=== PATIENT | female | born 1945 | race Two or more races ===

== ENCOUNTER 2017-08-13 04:08 | Emergency (ER) | payer OTHER ==
[~2017-08-13] VITALS: Ht 152.4 cm; Wt 45.4 kg
[2017-08-13 04:30] VITALS: BP 150/96
[2017-08-13] MEDS ORDERED: Albuterol ud Inhalation HHN ONE (05:00)
--- NOTE | 2017-08-13 05:18 | Emergency Room Report ---
History of Present Illness General Chief Complaint: Flu Like Symptoms Source: Patient, Family Member Present Illness HPI [id number] Complaining of cough for 4-5 days dry, no fevers or chills no other URI like symptoms Non smoker, no history of asthma Allergies: Coded Allergies: No Known Allergies (Unverified , 08/13/17) Patient History Past Medical History: none Past Surgical History: none Pertinent Family History: none Social History: Denies: smoking, alcohol use, drug use Now: No Immunizations: UTD Reviewed Nursing Documentation: PMH: Agreed, PSxH: Agreed Nursing Documentation-PMH Past Medical History: No Stated History Review of Systems All Other Systems: negative except mentioned in HPI Physical Exam Vital Signs Date Time Temp Pulse Resp B/P (MAP) Pulse Ox O2 Delivery O2 Flow Rate FiO2 08/13/17 04:16 98.0 94 18 150/96 99 Room Air 98.1 Sp02 EP Interpretation: reviewed, normal General Appearance: normal inspection, well appearing, no apparent distress, alert, GCS 15, non-toxic Head: normocephalic, atraumatic Eyes: bilateral eye PERRL, bilateral eye EOMI ENT: normal ENT inspection, hearing grossly normal, normal pharynx, no angioedema, normal voice, TMs + canals normal, uvula midline, moist mucus membranes Neck: normal inspection, full range of motion, supple, thyroid normal, no meningismus, no bony tend Respiratory: normal inspection, lungs clear, normal breath sounds, no rhonchi, no respiratory distress, no retraction, no accessory muscle use, no wheezing, speaking full sentences Cardiovascular #1: regular rate, rhythm, no edema, no JVD, normal capillary refill Gastrointestinal: normal inspection, normal bowel sounds, non tender, soft, no mass, no peritonitis, non-distended, no guarding, no hernia, no pulsatile mass Genitourinary: no CVA tenderness Musculoskeletal: normal inspection, back normal, normal range of motion, no calf tenderness, pelvis stable, Mehdi's Sign negative Neurologic: normal inspection, alert, oriented x3, responsive, conduit helper III-XII nml as tested, motor strength/tone normal, cerebellar normal, normal gait, speech normal Psychiatric: normal inspection, judgement/insight normal, mood/affect normal, no suicidal/homicidal ideation, no delusions Skin: normal inspection, normal color, no rash Lymphatic: normal inspection, no adenopathy Medical Decision Making Diagnostic Impression: Primary Impression: Viral illness ER Course VSS, afebrile CXR negative for PNA Cough improved with albuterol Tx Likely bronchitis component Low suspicion for sepsis, flu given well appearance Rx Albuterol ER course: Patient has remained stable during ED stay. Disposition: Patient is to be discharged to home. Prescriptions given are albuterol Patient is instructed to follow up with their primary care doctor within 5 days. Strict return precautions discussed with patient such as fever, chills, worsening/severe pain, nausea, vomiting, which may indicate severe illness. Patient verbalizes understanding and agrees with plan. Please note that this Emergency Department Report was dictated using [employer] non profit technology software, occasionally this can lead to erroneous entry secondary to interpretation by the dictation equipment Chest X-Ray Diagnostic Results Chest X-Ray Diagnostic Results : Chest X-Ray Ordered: Yes Indication: Shortness of Breath EP Interpretation: Yes Interpretation: no consolidation, no effusion, no pneumothorax, no acute cardiopulmonary disease Impression: No acute disease Electronically Signed by: Dr Nelly Leonard Last Vital Signs Date Time Temp Pulse Resp B/P (MAP) Pulse Ox O2 Delivery O2 Flow Rate FiO2 08/13/17 04:16 98.0 94 18 150/96 99 Room Air 98.1 Status: improved Disposition: HOME, SELF-CARE Scripts Albuterol Sulfate* (ALBUTEROL SULFATE MDI*) 8.5 Gm Hfa.aer.ad 2 PUFF INH Q4H Y for cough/wheezing, #1 EA 0 Refills Prov: NELLY LEONARD M.D. 08/13/17 Referrals: NON PHYSICIAN (PCP) NELLY LEONARD M.D. Aug 13, 2017 05:18
[2017-08-13] MEDS ORDERED: ALBUTEROL SULF8.5 GM INH (05:29)
[2017-08-13] MEDS ORDERED: Tylenol #3 tab (300mg/30mg) ORAL ONE (06:00)
[2017-08-13 06:10] VITALS: BP 150/96
--- NOTE | 2017-08-13 11:24 | Diagnostic Imaging Report ---
Indication: Cough Comparison: None A single view chest radiograph was obtained. Findings: Possible infiltrate medial right lung base with obscuring of the right heart border. Heart size is normal. Bones are osteopenic. The aorta is ectatic. IMPRESSION: Suspected infiltrate medial right lung base. This is questionable as this finding is sometimes seen in the setting of a pectus excavatum. A lateral film may be helpful. Please correlate clinically as well.
== END 2017-08-13 06:10 | disposition home or self-care (01) ==
LOC: EMR 04:34
DX: B34.9 Viral infection, unspecified (principal); R06.02 Shortness of breath
CPT/HCPCS: 71045; 94664; 99283

== ENCOUNTER 2018-01-16 09:50 | Outpatient (CLI) | payer OTHER, MEDICARE ==
[~2018-01-16] VITALS: Ht 144.8 cm; Wt 43.1 kg
[~2018-01-16 09:50] MED LIST: ALBUTEROL SULF8.5 GM INH
[2018-01-16 10:17] VITALS: BP 132/65
[2018-01-16] MEDS ORDERED: no medication (10:27)
--- NOTE | 2018-01-16 10:27 | GI Initial Consult Note ---
History of Present Illness General Date patient seen: Jan 16, 2018 Time patient seen: 10:22 Referring physician: CINTHIA Reason for Consultation: EGD/colonoscopy Present Illness HPI 72 year old female referred by Dr. Pereira for EGD/colonoscopy screening. The patient presents today with no general GI symptoms. Denies any abdominal pain, N/V/D or constipation. Denies any unintentional weight loss or changes in dietary habits. No signs of abuse or neglect. Patient is ambulatory and is not fall risk. Home Meds Active Scripts Albuterol Sulfate* (ALBUTEROL SULFATE MDI*) 8.5 Gm Hfa.aer.ad, 2 PUFF INH Q4H PRN for cough/wheezing, #1 EA 0 Refills Prov:NELLY LEONARD M.D. 08/13/17 Med list reviewed/reconciled: Yes Allergies: Coded Allergies: No Known Allergies (Unverified , 08/13/17) Patient History History Provided By: Patient, Medical Record PMH Narrative HTN HLD arthritis back pain Past Surgical History: Foot Social History: Reports: other - caffeine use Review of Systems All Other Systems: negative except mentioned in HPI Physical Exam Vital Signs Date Time Temp Pulse Resp B/P (MAP) Pulse Ox O2 Delivery O2 Flow Rate FiO2 01/16/18 10:17 98.1 74 16 132/65 96 98.1 Sp02 EP Interpretation: reviewed, normal General Appearance: well appearing, no apparent distress, alert Head: normocephalic EENT: PERRL/EOMI, normal ENT inspection Neck: supple Respiratory: normal breath sounds, no respiratory distress Cardiovascular: normal rate Gastrointestinal: normal inspection, non tender, soft, normal bowel sounds, non -distended Rectal: deferred Genitourinary: no CVA tenderness Musculoskeletal: normal inspection, back normal Neurologic: normal inspection, alert, oriented x3, responsive Psychiatric: normal inspection, judgement/insight normal, memory normal Skin: normal inspection, normal color, no rash, warm/dry, palpation normal, well hydrated Lymphatic: normal inspection, no adenopathy GI: Plan Problems: (1) Colonoscopy planned (2) HLD (hyperlipidemia) (3) HTN (hypertension) (4) Arthritis Plan EGD/colonoscopy scheduled 01/22/18. - CLD & (Nulytely/Suprep/Movi-Prep) prep instructions given and acknowledged by patient. - NPO @ SC day prior procedure explained. Seen with Dr. Booker. Thank you for this patient referral. The patient was seen and examined at bedside and all new and available data was reviewed in the patients chart. I agree with the above findings, impression and plan. (Patient seen earlier today. Signature stamp does not reflect patient encounter time.). - MD Ellen [facility] DIRECTOR OF CARDIOLOGY Jan 16, 2018 10:27
== END 2018-01-16 10:23 | disposition home or self-care (01) ==
LOC: PAN 09:50
DX: E78.5 Hyperlipidemia, unspecified (principal); I10 Essential (primary) hypertension; M19.90 Unspecified osteoarthritis, unspecified site
CPT/HCPCS: 99201

== ENCOUNTER 2018-01-29 06:19 | Day surgery (SDC) | payer MEDICARE, OTHER ==
[2018-01-29] VITALS (10 sets, daily range): BP systolic 120–150; BP diastolic 69–80
[~2018-01-29] VITALS: Ht 152.4 cm; Wt 44.0 kg
[~2018-01-29 06:19] MED LIST changes: +no medication
--- NOTE | 2018-01-29 07:07 | Anethesia Preoperative Eval ---
Anesthesia Pre-op PMH/ROS General Date of Evaluation: Jan 29, 2018 Time of Evaluation: 07:04 Anesthesiologist: nkechi ASA Score: ASA 3 Mallampati Score Class I : Soft palate, uvula, fauces, pillars visible Class II: Soft palate, uvula, fauces visible Class III: Soft palate, base of uvula visible Class IV: Only hard plate visible Mallampati Classification: Class II Surgeon: rohit Diagnosis: abdominal pain, colon screening Surgical Procedure: egd/colonoscopy Anesthesia History: none Social History: smoking - nonsmoker Family History: no anesthesia problems Allergies: Coded Allergies: No Known Allergies (Unverified , 08/13/17) Medications: see eMAR Past Medical History Cardiovascular: Reports: HTN, other - hypercholesterolemia Gastrointestinal/Genitourinary: Reports: other - abdominal pain Musculoskeletal/Integumentary: Reports: OA Anesthesia Pre-op Phys. Exam Physician Exam Last Vital Signs Date Time Temp Pulse Resp B/P (MAP) Pulse Ox O2 Delivery O2 Flow Rate FiO2 01/29/18 07:45 97.3 67 20 150/69 (96) 99 97.3 01/29/18 07:11 Room Air Constitutional: NAD Neurologic: CN 2-12 intact Cardiovascular: RRR Respiratory: CTA Gastrointestinal: S/NT/ND Airway Exam Mallampati Score: Class II MO: limited Neck: supple TMD: 2fb ROM: limited Teeth: missing Dentures: upper, lower Anesthesia Pre-op A/P Studies Pre-op Studies: EKG Risk Assessment & Plan Assessment: asa3 Plan: mac Status Change Before Surgery: No Pre-Antibiotics Drug: Teresa Hawthorne MD Jan 29, 2018 07:07
[2018-01-29] MEDS ORDERED: METOPROLOL SUCC50 MG ORAL (07:08)
[2018-01-29] MEDS ORDERED: Midazolam 2mg/2ml Inj IVP PRN (07:15)
[2018-01-29] MEDS ORDERED: Atropine Inj 1mg/10ml Syr IV PRN (07:15)
[2018-01-29] MEDS ORDERED: Labetalol 5mg/ml 20ml vial IV PRN (07:15)
[2018-01-29] MEDS ORDERED: DiphenhydrAMINE 50mg/ml Inj IVP PRN (07:15)
[2018-01-29] MEDS ORDERED: fentaNYL 100 mcg/2 mL IV PRN (07:15)
[2018-01-29] MEDS ORDERED: Atropine Sulfate 0.4mg/ml inj ONE (07:30)
[2018-01-29] MEDS ORDERED: Lidocaine 1% MPF 10mg/ml 5ml ONE (07:30)
[2018-01-29] MEDS ORDERED: Propofol 200mg/20ml IV ONE (07:30)
--- NOTE | 2018-01-29 08:30 | Pre-Procedure Note/Attestation ---
Pre-Procedure Note/Attestation Complete Prior to Procedure Planned Procedure: not applicable Procedure Narrative: esophagogastroduodenoscopy and colonoscopy Indications for Procedure Pre-Operative Diagnosis: screening colonoscopy, GERD Attestation I attest that I discussed the nature of the procedure; its benefits; risks and complications; and alternatives (and the risks and benefits of such alternatives ), prior to the procedure, with the patient (or the patient's legal field representative). I attest that, if there was a reasonable possibility of needing a blood transfusion, the patient (or the patient's legal field representative) was given the [facility] standardized written summary, pursuant to the Liang [place] Blood Safety Act ([place] Health and Safety Code # 1645, as amended). I attest that I re-evaluated the patient just prior to the surgery and that there has been no change in the patient's H&P, except as documented below: Freddie Booker MD Jan 29, 2018 08:30
--- NOTE | 2018-01-29 08:30 | Short Stay Surgery H&P ---
History of Present Illness History of Present Illness Chief Complaint see recent consult note HPI Harmeet Mueller is a 72 year old female who was admitted on for Abdominal Pain, Colon Screening Patient History Allergies: Coded Allergies: No Known Allergies (Unverified , 08/13/17) Medication History Scheduled Metoprolol Succinate* (Metoprolol Succinate*), 50 MG ORAL DAILY, (Reported) Miscellaneous Medications [no medication ], (Reported) Physical Exam Vital Signs Last Vital Signs Date Time Temp Pulse Resp B/P (MAP) Pulse Ox O2 Delivery O2 Flow Rate FiO2 01/29/18 07:45 97.3 67 20 150/69 (96) 99 97.3 01/29/18 07:11 Room Air Plan Attestation Are the patient's medical conditions optimized for surgery? Freddie Booker MD Jan 29, 2018 08:30
--- NOTE | 2018-01-29 09:04 | Endoscopy Procedure Note ---
Endoscopy Procedure Note General Indication for Procedure: screening colon, GERD Procedures Performed: EGD, colonoscopy Operative Findings/Diagnosis: gastritis, colon polyp Specimen: yes Pt Tolerated Procedure Well: Yes Estimated Blood Loss: none Anesthesia Anesthesiologist: christiano Anesthesia: MAC Inserted Devices Implant(s) used?: No Quality Quality of Bowel Preparation: Good Did scope reach the cecum?: Yes Was there any complications?: No GI Core Measures 50 yrs or older w/o bx or poly: No 10yrs. F/U not recommended: Yes If not recommended, why?: Above average risk 10 yrs. F/U needed: Yes 18 years or older w/prev. colo: No Freddie Booker MD Jan 29, 2018 09:04
--- NOTE | 2018-01-29 10:53 | Immediate Post-Op Evaluation ---
Immediate Post-Op Evalulation Immediate Post-Op Evalulation Procedure: egd/colonoscopy/bx Date of Evaluation: Jan 29, 2018 Time of Evaluation: 09:16 IV Fluids: 500ml 0.9ns Blood Products: none Estimated Blood Loss: negligible Blood Pressure Systolic: 120 Blood Pressure Diastolic: 74 Pulse Rate: 86 Respiratory Rate: 18 O2 Sat by Pulse Oximetry: 100 Temperature (Fahrenheit): 97.6 Pain Score (1-10): 0 Nausea: No Vomiting: No Complications none Patient Status: awake, reacts, patent Hydration Status: adequate Drug: Teresa Hawthorne MD Jan 29, 2018 10:53
--- NOTE | 2018-01-29 10:55 | 48 Hour Post Anesthesia Eval ---
Post Anesthesia Evaluation Procedure: egd/colonoscopy/bx Date of Evaluation: Jan 29, 2018 Time of Evaluation: 09:18 Blood Pressure Systolic: 128 0: 75 Pulse Rate: 83 Respiratory Rate: 18 Temperature (Fahrenheit): 97.6 O2 Sat by Pulse Oximetry: 100 Airway: patent Nausea: No Vomiting: No Pain Intensity: 0 Hydration Status: adequate Cardiopulmonary Status: stable Mental Status/LOC: patient returned to baseline Post-Anesthesia Complications: none Follow-up care needed: N/A Teresa Edwards MD Jan 29, 2018 10:54
--- NOTE | 2018-01-29 14:15 | Procedure Note ---
DATE OF PROCEDURE: 01/29/2018 SURGEON: Freddie Booker M.D. REFERRING PHYSICIAN: Freddie Pereira M.D. PROCEDURE: Upper endoscopy with biopsy and colonoscopy with biopsy. ANESTHESIOLOGIST: Dr. Payne. INSTRUMENT: Olympus adult flexible upper endoscope and colonoscope. INDICATION: Screening colonoscopy and chronic GERD. REASON FOR PROCEDURE: The procedure, risks, benefits, and possible consequences, including hemorrhage, aspiration, perforation and infection, and alternative treatments, were explained to the patient/legal guardian by Dr. Freddie Booker and the patient/legal guardian understood and accepted these risks. DESCRIPTION OF PROCEDURE: After informed consent was obtained and the patient was adequately sedated, Olympus upper endoscope was advanced from the mouth into the second portion of the duodenum and retroflexion was performed in the stomach. The patient had evidence of diffuse gastritis. Random biopsy from body and antrum was obtained to rule out H. pylori infection. The patient also has evidence of small inlet patch. At this time, the upper endoscope was retrieved. The patient was turned over for colonoscopy. First, rectal exam performed, which was positive for internal hemorrhoids. Then, the scope was advanced from rectum to the cecum the appendix orifice, ileocecal valve, and upper quadrant palpation. Quality of prep was good. This was a challenging colonoscopy, very tortuous colon. One polyp was seen in the ascending colon, measured roughly about 4 mm, removed with cold biopsy forceps technique. The rest of the exam grossly looked within normal limits. Rectum showed evidence of medium-sized nonbleeding internal hemorrhoids. SUMMARY OF FINDINGS: 1. Gastritis, status post biopsy. 2. Small inlet patch. 3. One colon polyp removed. See above for details. 4. Internal hemorrhoids. RECOMMENDATIONS: 1. Follow up biopsy results and treat accordingly. 2. We are going to repeat colonoscopy in five years. I want to thank Dr. Freddie Pereira, for this kind referral. Freddie Booker M.D. DR: JOBY JOB#: [id number] CC: Freddie Pereira M.D.; Fax#: [phone]
== END 2018-01-29 10:20 | disposition home or self-care (01) ==
LOC: GAS 06:19
DX: Z12.11 Encounter for screening for malignant neoplasm of colon (principal); D12.2 Benign neoplasm of ascending colon; K64.8 Other hemorrhoids; K29.70 Gastritis, unspecified, without bleeding; B96.81 Helicobacter pylori [H. pylori] as the cause of diseases classified elsewhere; K21.9 Gastro-esophageal reflux disease without esophagitis; I10 Essential (primary) hypertension; E78.00 Pure hypercholesterolemia, unspecified; M19.90 Unspecified osteoarthritis, unspecified site
CPT/HCPCS: 43239; 45380; 93005; J0461; J2704; 94003; 94150

== ENCOUNTER 2018-02-06 08:43 | Outpatient (CLI) | payer MEDICARE, OTHER ==
[~2018-02-06 08:43] MED LIST changes: +METOPROLOL SUCC50 MG ORAL
[2018-02-06 09:11] VITALS: BP 127/67
--- NOTE | 2018-02-06 09:48 | GI Progress Note ---
Assessment/Plan Problems: (1) Nausea ICD Codes: R11.0 - Nausea SNOMED: 388619983 (2) H. pylori infection ICD Codes: A04.8 - Other specified bacterial intestinal infections SNOMED: 575964424 Status: stable Status Narrative Seen with Dr. Booker. Assessment/Plan SUMMARY OF FINDINGS: 1. Gastritis, status post biopsy. 2. Small inlet patch. 3. One colon polyp removed. See above for details. 4. Internal hemorrhoids. RECOMMENDATIONS: 1. Follow up biopsy results and treat accordingly. >> H. Pylori positive, Rx for treatment given. RTC x 3 month for repeat BT 2. We are going to repeat colonoscopy in five years. The patient was seen and examined at bedside and all new and available data was reviewed in the patients chart. I agree with the above findings, impression and plan. (Patient seen earlier today. Signature stamp does not reflect patient encounter time.). - Freddie Booker MD Subjective Gastrointestinal/Abdominal: Reports: nausea Objective Last 24 Hour Vital Signs Date Time Temp Pulse Resp B/P (MAP) Pulse Ox O2 Delivery O2 Flow Rate FiO2 02/06/18 09:11 98.1 75 16 127/67 98 98.1 General Appearance: WD/WN, no apparent distress, alert Cardiovascular: normal rate Respiratory/Chest: normal breath sounds, no respiratory distress Abdominal Exam: normal bowel sounds, non tender, soft Extremities: normal range of motion, non-tender Chris Hughes NP Feb 06, 2018 09:48
== END 2018-02-06 09:13 | disposition home or self-care (01) ==
LOC: PAN 08:43
DX: R11.0 Nausea (principal); A04.8 Other specified bacterial intestinal infections; K29.70 Gastritis, unspecified, without bleeding; Z86.010 Personal history of colon polyps; K64.8 Other hemorrhoids
CPT/HCPCS: 99212

== ENCOUNTER 2018-05-08 08:56 | Outpatient (CLI) | payer MEDICARE, OTHER ==
[2018-05-08 09:21] VITALS: BP 149/74
[2018-05-08] MEDS ORDERED: ATORVASTATIN CA20 MG ORAL (09:23)
[2018-05-08] MEDS ORDERED: ASPIRIN EC81 MG ORAL (09:23)
[2018-05-08] MEDS ORDERED: DOK100 M1 PO (09:23)
--- NOTE | 2018-05-08 10:20 | GI Progress Note ---
Assessment/Plan Problems: (1) Constipation ICD Codes: K59.00 - Constipation, unspecified SNOMED: 15606965 (2) H. pylori infection ICD Codes: A04.8 - Other specified bacterial intestinal infections SNOMED: 112374622 (3) Nausea ICD Codes: R11.0 - Nausea SNOMED: 607816378 (4) HLD (hyperlipidemia) ICD Codes: E78.5 - Hyperlipidemia, unspecified SNOMED: 49145996 (5) HTN (hypertension) ICD Codes: I10 - Essential (primary) hypertension SNOMED: 74256887 Status: stable Status Narrative Seen with Dr. Booker. Assessment/Plan s/p H. pylori treatment >> BT today Rx Linzess 72mcg RTC x 3 month The patient was seen and examined at bedside and all new and available data was reviewed in the patients chart. I agree with the above findings, impression and plan. (Patient seen earlier today. Signature stamp does not reflect patient encounter time.). - Freddie Booker MD Subjective Gastrointestinal/Abdominal: Reports: no symptoms Objective Last 24 Hour Vital Signs Date Time Temp Pulse Resp B/P (MAP) Pulse Ox O2 Delivery O2 Flow Rate FiO2 05/08/18 09:21 97.5 58 16 149/74 97 General Appearance: WD/WN, no apparent distress, alert Cardiovascular: normal rate Respiratory/Chest: normal breath sounds, no respiratory distress Abdominal Exam: normal bowel sounds, non tender, soft Extremities: normal range of motion, non-tender Chris Hughes RECRUITMENT MANAGER May 08, 2018 10:20
== END 2018-05-08 09:26 | disposition home or self-care (01) ==
LOC: PAN 08:56
DX: K59.00 Constipation, unspecified (principal); A04.8 Other specified bacterial intestinal infections; R11.0 Nausea; E78.5 Hyperlipidemia, unspecified; I10 Essential (primary) hypertension
CPT/HCPCS: 83013; G0463; 99212

== ENCOUNTER 2018-08-21 08:54 | Outpatient (CLI) | payer MEDICARE, OTHER ==
[~2018-08-21 08:54] MED LIST changes: +ASPIRIN EC81 MG ORAL; +ATORVASTATIN CA20 MG ORAL; +DOK100 M1 PO
--- NOTE | 2018-08-21 09:20 | General Progress Note ---
Assessment/Plan Problem List: (1) HTN (hypertension) ICD Codes: I10 - Essential (primary) hypertension SNOMED: 71369355 (2) H. pylori infection ICD Codes: A04.8 - Other specified bacterial intestinal infections SNOMED: 838809768 (3) Constipation ICD Codes: K59.00 - Constipation, unspecified SNOMED: 71526891 (4) Arthritis ICD Codes: M19.90 - Unspecified osteoarthritis, unspecified site SNOMED: 0576531 Assessment/Plan EGd and colonoscopy reviewed repeat colonoscopy 01/2023 constipation has resolved BT neg for HP Subjective ROS Limited/Unobtainable: Yes Allergies: Coded Allergies: No Known Allergies (Unverified , 08/13/17) Objective General Appearance: alert EENT: normal ENT inspection Neck: supple Cardiovascular: normal rate Respiratory/Chest: lungs clear Abdomen: normal bowel sounds, non tender, soft Extremities: non-tender Freddie Booker MD Aug 21, 2018 09:20
== END 2018-08-21 10:57 | disposition home or self-care (01) ==
LOC: PAN 08:54
DX: K59.00 Constipation, unspecified (principal); I10 Essential (primary) hypertension; A04.8 Other specified bacterial intestinal infections; M19.90 Unspecified osteoarthritis, unspecified site
CPT/HCPCS: G0463